=== PATIENT | female | born 1985 | race Two or more races ===

== ENCOUNTER 2020-03-24 13:12 | Emergency (ER) | payer OTHER ==
[~2020-03-24] VITALS: Ht 160 cm; Wt 90.7 kg
[2020-03-24 13:19] VITALS: BP 124/75
[2020-03-24] MEDS ORDERED: cefTRIAXone SOD 1,000 MG VL IM ONE (14:45)
== END 2020-03-24 16:06 | disposition home or self-care (01) ==
LOC: ER 13:12
DX: U07.1 COVID-19 (principal); J12.89 Other viral pneumonia
CPT/HCPCS: 71045; 96372; 99283; J0696